=== PATIENT | female | born 1995 | race African-American/Black ===

== ENCOUNTER 2018-01-27 15:34 | Emergency (ER) | payer OTHER ==
--- NOTE | 2018-01-27 16:04 | ER Document Report ---
ED Medical Screen (RME) - General Chief Complaint: Abdominal Pain Stated Complaint: PELVIC PAIN Time Seen by Provider: 01/27/18 15:59 Notes: 22 years old female presents today with pelvic pain without any discharges. No fever chills no dysuria frequency urgency. TRAVEL OUTSIDE OF THE [place] IN LAST 30 DAYS: No - Related Data Allergies/Adverse Reactions: No Known Allergies Allergy (Unverified 01/27/18 15:36) Past Medical History - Social History Frequency of alcohol use: None Drug Abuse: None Renal/ Medical History: Denies: Hx Peritoneal Dialysis Physical Exam - Vital signs Vitals: Temp Pulse Resp BP Pulse Ox 98.5 F 98 18 128/67 H 98 01/27/18 15:42 01/27/18 15:42 01/27/18 15:42 01/27/18 15:42 01/27/18 15:42 Course - Vital Signs Vital signs: Temp Pulse Resp BP Pulse Ox 98.5 F 98 18 128/67 H 98 01/27/18 15:42 01/27/18 15:42 01/27/18 15:42 01/27/18 15:42 01/27/18 15:42
[2018-01-27 16:49] LABS: ABSOLUTE BASOPHILS # (AUTO) 0.1 10^3/uL (0.0-0.2); ABSOLUTE EOSINOPHILS # (AUTO) 0.1 10^3/uL (0.0-0.6); ABSOLUTE LYMPHOCYTES (AUTO) 2.5 10^3/uL (0.5-4.7); ABSOLUTE MONOCYTES (AUTO) 0.3 10^3/uL (0.1-1.4); ABSOLUTE NEUT (AUTO) 2.1 10^3/uL (1.7-8.2); EOSINOPHILS % (AUTO) 1.4 % (0-6); HEMATOCRIT 40.6 % (36.0-47.0); HEMOGLOBIN 13.3 g/dL (12.0-15.5); LYMPHOCYTES % (AUTO) 49.8 % (13-45); MEAN CORPUSCULAR HEMOGLOBIN 26.9 pg (27.0-33.4); MEAN CORPUSCULAR HGB CONC 32.7 g/dL (32.0-36.0); MEAN CORPUSCULAR VOLUME 82 fl (80-97); MONOCYTES % (AUTO) 5.7 % (3-13); PLATELET COUNT 215 10^3/uL (150-450); RED BLOOD COUNT 4.93 10^6/uL (3.72-5.28); RED CELL DISTRIBUTION WIDTH 15.9 % (11.5-14.0); SEGMENTED NEUTROPHILS % (AUTO) 42.1 % (42-78); TOTAL CELLS COUNTED % (AUTO) 100 %; WHITE BLOOD COUNT 5.1 10^3/uL (4.0-10.5)
[2018-01-27 17:36] LABS: APPEARANCE,URINE SLIGHTLY-CLOUDY; BILIRUBIN,URINE NEGATIVE (NEGATIVE); COLOR,URINE YELLOW; GLUCOSE, URINE NEGATIVE (NEGATIVE); KETONES,URINE NEGATIVE (NEGATIVE); LEUKOCYTE ESTERASE,URINE SMALL (NEGATIVE); NITRITE,URINE NEGATIVE (NEGATIVE); PROTEIN,URINE NEGATIVE (NEGATIVE); URINE SPECIFIC GRAVITY 1.018; UROBILINOGEN,URINE NEGATIVE mg/dL (<2.0)
[2018-01-27] MEDS ORDERED: OXYCODONE-ACETAMINOPHEN 5-325 MG TABLET PO ONE (18:29)
--- NOTE | 2018-01-27 18:30 | ER Document Report ---
HPI - HPI Patient complains to provider of: Pelvic pain Onset: Other - 3 weeks Onset/Duration: Worse Quality of pain: Achy Pain Level: 3 Context: Presents complaining of lower pelvic pain for the past 3 week patient states she did have some nausea with vomiting 1 episode yesterday. Patient denies any fever, vaginal bleeding or discharge. Patient denies any cough or cold symptoms. Associated Symptoms: Vomiting - 1 yesterday, Other - Lower pelvic pain. denies : Nonproductive cough, Fever, Sore throat Exacerbated by: Denies Relieved by: Denies Similar symptoms previously: Yes - UTI Recently seen / treated by doctor: No - ROS ROS below otherwise negative: Yes Systems Reviewed and Negative: Yes All other systems reviewed and negative - CONSTITUTIONAL Constitutional: DENIES: Fever - NEURO Neurology: DENIES: Weakness - RESPIRATORY Respiratory: DENIES: Coughing - GASTROINTESTINAL Gastrointestinal: REPORTS: Abdominal Pain, Nausea, Patient vomiting. DENIES: Diarrhea - URINARY Urinary: DENIES: Dysuria, Urgency, Frequency - REPRODUCTIVE LMP: september Reproductive: DENIES: Abnormal bleeding / discharge - DERM Skin Color: Normal Skin Problems: None Past Medical History - General Information source: Patient - Social History Smoking Status: Never Smoker Frequency of alcohol use: None Drug Abuse: None Occupation: None Lives with: Family Family History: Reviewed & Not Pertinent Patient has suicidal ideation: No Patient has homicidal ideation: No - Medical History Medical History: Negative Pulmonary Medical History: Reports: Hx Asthma - exercise induced Renal/ Medical History: Denies: Hx Peritoneal Dialysis Past Surgical History: Reports: Hx Breast Surgery - lumpectomy right Vertical Provider Document - CONSTITUTIONAL Agree With Documented VS: Yes Exam Limitations: No Limitations General Appearance: WD/WN, No Apparent Distress - INFECTION CONTROL TRAVEL OUTSIDE OF THE [place] IN LAST 30 DAYS: No - HEENT HEENT: Atraumatic, Normocephalic - NECK Neck: Normal Inspection, Supple - RESPIRATORY Respiratory: Breath Sounds Normal, No Respiratory Distress. negative: Rales, Wheezing - CARDIOVASCULAR Cardiovascular: Regular Rate, Regular Rhythm - GI/ABDOMEN Gastrointestinal: Abdomen Soft, Abdomen Tender - suprapubic, Abdominal Guarding , No Organomegaly - REPRODUCTIVE Female Genitalia: CMT. negative: Adnexal Pain-Right, Adnexal Pain-Left - BACK Back: Normal Inspection - MUSCULOSKELETAL/EXTREMETIES Musculoskeletal/Extremeties: SAURABH WRIGHT - NEURO Level of Consciousness: Awake, Alert, Appropriate Motor/Sensory: No Motor Deficit - DERM Integumentary: Warm, Dry, No Rash Course - Re-evaluation Re-evalutation: 01/27/18 21:06 Patient with suprapubic tenderness and leukocyte esterase noted on UA. Will cover for will be added. UTI at this time. Culture pelvic ultrasound reviewed , no concern for ovarian cyst, abscess or torsion. No concern for at this time. Patient nontoxic. Patient presents with abdominal pain without signs of peritonitis or other life-threatening or serious etiology. Patient appears stable for discharge and has been instructed to return immediately if the symptoms worsen in any way, or in 8-12 hours if not improved for reevaluation. The patient has been instructed to return if the symptoms worsen or change in any way. - Vital Signs Vital signs: Temp Pulse Resp BP Pulse Ox 98.5 F 98 18 128/67 H 98 01/27/18 15:42 01/27/18 15:42 01/27/18 15:42 01/27/18 15:42 01/27/18 15:42 - Laboratory Result Diagrams: 01/27/18 16:30 Laboratory results interpreted by me: 01/27/18 01/27/18 16:30 16:30 MCH 26.9 L RDW 15.9 H Lymphocytes % 49.8 H Ur Leukocyte Esterase SMALL H Urine Ascorbic Acid 40 H 01/27/18 21:06 Labs- Entire Visit 01/27/18 01/27/18 01/27/18 16:30 16:30 18:59 WBC 5.1 RBC 4.93 Hgb 13.3 Hct 40.6 MCV 82 MCH 26.9 L MCHC 32.7 RDW 15.9 H Plt Count 215 Seg Neutrophils % 42.1 Lymphocytes % 49.8 H Monocytes % 5.7 Eosinophils % 1.4 Basophils % 1.0 Absolute Neutrophils 2.1 Absolute Lymphocytes 2.5 Absolute Monocytes 0.3 Absolute Eosinophils 0.1 Absolute Basophils 0.1 Urine Color YELLOW Urine Appearance SLIGHTLY-CLOUDY Urine pH 7.0 Ur Specific Rossiter 1.018 Urine Protein NEGATIVE Urine Glucose (UA) NEGATIVE Urine Ketones NEGATIVE Urine Blood NEGATIVE Urine Nitrite NEGATIVE Urine Bilirubin NEGATIVE Urine Urobilinogen NEGATIVE Ur Leukocyte Esterase SMALL H Urine WBC (Auto) 6 Squamous Epi Cells Auto 14 Urine Mucus (Auto) RARE Urine Ascorbic Acid 40 H Urine HCG, Qual NEGATIVE Epi Cells (Wet Prep) 3+ EPITHELIALS SEEN Trichomonas (Wet Prep) NO TRICHOMONAS SEEN Vaginal WBC RARE WBCS SEEN Vaginal Yeast NO YEAST SEEN - Diagnostic Test Radiology reviewed: Reports reviewed Discharge - Discharge Clinical Impression: UTI (urinary tract infection) Qualifiers: Urinary tract infection type: site unspecified Hematuria presence: without hematuria Qualified Code(s): N39.0 - Urinary tract infection, site not specified Condition: Stable Disposition: HOME, SELF-CARE Instructions: Abdominal Pain ([facility]), Cephalexin ([facility]), Urinary Anesthetic Agent ([facility]), Urinary Tract Infection ([facility]) Additional Instructions: Return immediately for any new or worsening symptoms Followup with your primary care provider, call tomorrow to make a followup appointment Prescriptions: Cephalexin Monohydrate [Keflex 500 mg Capsule] 500 mg PO Q6H 5 Days capsule Phenazopyridine HCl [Pyridium 200 mg Tablet] 200 mg PO TID #15 tablet Referrals: [facility] [Provider Group] - Follow up as needed [facility] [Provider Group] - Follow up as needed
[2018-01-27 19:16] LABS: T.VAGINALIS (WET MOUNT) NO TRICHOMONAS SEEN; YEAST (WET MOUNT) NO YEAST SEEN
[2018-01-27 19:17] LABS: EPITHELIALS (WET MOUNT) 3+ EPITHELIALS SEEN; WBCS (WET MOUNT) RARE WBCS SEEN
--- NOTE | 2018-01-27 20:34 | RADIOLOGY REPORT (SQ) ---
EXAM DESCRIPTION: U/S NON OB PEL TV W/DOPPLER COMPLETED DATE/TIME: 01/27/2018 8:18 pm REASON FOR STUDY: pelvic pain COMPARISON: None. TECHNIQUE: Dynamic and static grayscale images acquired of the pelvis via transvaginal approach and recorded on PACS. Additional selected color Doppler and spectral images recorded. LIMITATIONS: None. FINDINGS: UTERUS: Contour normal. No mass. ENDOMETRIAL STRIPE: No focal or generalized thickening. No masses. CERVIX: No nabothian cysts. RIGHT OVARY AND DOPPLER: Normal size. No worrisome masses. Normal arterial vascular flow without evid ence for torsion. LEFT OVARY AND DOPPLER: Normal size. No worrisome masses. Normal arterial vascular flow without evide nce for torsion. FREE FLUID: Small amount of free fluid in the cul-de-sac OTHER: No other significant finding. MEASUREMENTS: UTERUS: 6.3 x 4.9 x 3.9 cm ENDOMETRIAL STRIPE: 3 mm RIGHT OVARY: 3.6 x 2.5 x 1.8 cm LEFT OVARY: 3.7 x 2.2 x 1.8 cm IMPRESSION: Age-appropriate exam. TECHNICAL DOCUMENTATION: JOB ID: [id number] [id number] 2010 [employer]- All Rights Reserved Rev-10/16 Reading location - IP/workstation name: [employer]
[2018-01-27 20:48] LABS: CHLAM PCR NOT DETECTED (NOT DETECT); GON PCR NOT DETECTED (NOT DETECT)
[2018-01-27] MEDS ORDERED: CEPHALEXIN 500 MG CAPSULE PO ONE (21:05)
[2018-01-27 21:29] VITALS: BP 122/68
== END 2018-01-27 21:31 | disposition home or self-care (01) ==
LOC: ER 15:34
DX: N39.0 Urinary tract infection, site not specified (principal); R11.2 Nausea with vomiting, unspecified; R10.2 Pelvic and perineal pain
CPT/HCPCS: 36415; 76830; 81001; 81025; 85025; 87086; 87210; 87491; 87591; 93976; 99284

== ENCOUNTER 2020-06-04 10:47 | Emergency (ER) | payer OTHER ==
--- NOTE | 2020-06-04 11:12 | ER Document Report ---
ED Medical Screen (RME) - General Chief Complaint: Nausea/Vomiting Stated Complaint: NAUSEA,VOMITING TRAVEL OUTSIDE OF THE [place] IN LAST 30 DAYS: No - HPI Notes: 06/04/20 11:09 Rapid Medical Exam HPI: Is a 24-year-old female presents to the ER complaining of nausea vomiting in the mornings X 1 week. Pt has increased BMs- nonbloody. PT says she missed her period 2 days ago but took a neg home preg test- no control. Denies fevers or chills. intermittent epigastric pain and belching. Physical Exam: GENERAL: Well-appearing, well-nourished and in no acute distress. HEAD: Atraumatic, normocephalic. ENT: Moist mucous membranes. RESP: Respirations even and unlabored CV- Regular rate. NEURO: No focal neurological deficits. Moves all extremities spontaneously and on command. My involvement in this patients care was limited to a rapid initial assessment. A comprehensive ED assessment and evaluation of the patient, analysis of test results, treatment, and completion of the medical decision making process will be performed by other ER providers. - Related Data Allergies/Adverse Reactions: banana Allergy (Verified 06/04/20 10:59) Past Medical History Pulmonary Medical History: Reports: Hx Asthma - exercise induced Renal/ Medical History: Denies: Hx Peritoneal Dialysis Past Surgical History: Reports: Hx Breast Surgery - lumpectomy right Physical Exam - Vital signs Vitals: Temp Pulse Resp BP Pulse Ox 98.5 F 82 16 119/73 98 06/04/20 10:57 06/04/20 10:57 06/04/20 10:57 06/04/20 10:57 06/04/20 10:57 Course - Vital Signs Vital signs: Temp Pulse Resp BP Pulse Ox 98.5 F 82 16 119/73 98 06/04/20 10:57 06/04/20 10:57 06/04/20 10:57 06/04/20 10:57 06/04/20 10:57
[2020-06-04 11:37] LABS: ABSOLUTE BASOPHILS # (AUTO) 0.1 10^3/uL (0.0-0.2); ABSOLUTE EOSINOPHILS # (AUTO) 0.1 10^3/uL (0.0-0.6); ABSOLUTE LYMPHOCYTES (AUTO) 2.7 10^3/uL (0.5-4.7); ABSOLUTE MONOCYTES (AUTO) 0.4 10^3/uL (0.1-1.4); ABSOLUTE NEUT (AUTO) 3.2 10^3/uL (1.7-8.2); BASOPHILS % (AUTO) 1.1 % (0-2); EOSINOPHILS % (AUTO) 1.8 % (0-6); HEMATOCRIT 40.9 % (36.0-47.0); HEMOGLOBIN 13.8 g/dL (12.0-15.5); LYMPHOCYTES % (AUTO) 41.5 % (13-45); MEAN CORPUSCULAR HEMOGLOBIN 28.1 pg (27.0-33.4); MEAN CORPUSCULAR HGB CONC 33.7 g/dL (32.0-36.0); MEAN CORPUSCULAR VOLUME 83 fl (80-97); MONOCYTES % (AUTO) 6.4 % (3-13); PLATELET COUNT 202 10^3/uL (150-450); RED CELL DISTRIBUTION WIDTH 13.8 % (11.5-14.0); SEGMENTED NEUTROPHILS % (AUTO) 49.2 % (42-78); TOTAL CELLS COUNTED % (AUTO) 100 %; WHITE BLOOD COUNT 6.5 10^3/uL (4.0-10.5)
[2020-06-04 11:41] LABS: APPEARANCE,URINE SLIGHTLY-CLOUDY; BILIRUBIN,URINE NEGATIVE (NEGATIVE); COLOR,URINE YELLOW; GLUCOSE, URINE NEGATIVE (NEGATIVE); KETONES,URINE NEGATIVE (NEGATIVE); LEUKOCYTE ESTERASE,URINE TRACE (NEGATIVE); NITRITE,URINE NEGATIVE (NEGATIVE); PROTEIN,URINE NEGATIVE (NEGATIVE); URINE SPECIFIC GRAVITY 1.024; UROBILINOGEN,URINE NEGATIVE mg/dL (<2.0)
[2020-06-04 12:00] LABS: ALBUMIN 4.7 g/dL (3.5-5.0); ALKALINE PHOSPHATASE 52 U/L (38-126); ANION GAP 11 (5-19); ASPARTATE AMINO TRANSFERASE 24 U/L (14-36); BILIRUBIN,DIRECT 0.2 mg/dL (0.0-0.4); BILIRUBIN,TOTAL 0.6 mg/dL (0.2-1.3); BLOOD UREA NITROGEN 14 mg/dL (7-20); CALCIUM 10.2 mg/dL (8.4-10.2); CARBON DIOXIDE 25 mmol/L (22-30); CHLORIDE 101 mmol/L (98-107); GLUCOSE 98 mg/dL (75-110); TOTAL PROTEIN 8.2 g/dL (6.3-8.2)
--- NOTE | 2020-06-04 15:10 | ER Document Report ---
ED General - General Chief Complaint: Nausea/Vomiting Stated Complaint: NAUSEA,VOMITING Time Seen by Provider: 06/04/20 13:34 TRAVEL OUTSIDE OF THE [place] IN LAST 30 DAYS: No - HPI Notes: Patient is a 24-year-old female presents emergency department for evaluation of nausea, vomiting, fatigue, and lower abdominal pain. She denies any diarrhea, but states that she normally has IBS with constipation, her bowel movements have been much more frequent. She has had no fever chills. No anosmia or change in her sense of taste. No cough or shortness of breath. No vaginal discharge. She states she feels like she is urinating more frequently but denies any dysuria or hematuria. No known COVID-19 exposures. She states her menstruation is 2 days late at this time. - Related Data Allergies/Adverse Reactions: banana Allergy (Verified 06/04/20 10:59) Past Medical History - General Information source: Patient - Social History Smoking Status: Never Smoker Frequency of alcohol use: Occasional Drug Abuse: None Family History: Reviewed & Not Pertinent Pulmonary Medical History: Reports: Hx Asthma - exercise induced Renal/ Medical History: Denies: Hx Peritoneal Dialysis GI Medical History: Reports: Hx Irritable Bowel - With constipation Past Surgical History: Reports: Hx Breast Surgery - lumpectomy right, Hx Gynecologic Surgery - LEEP Review of Systems - Review of Systems Constitutional: No symptoms reported EENT: No symptoms reported Cardiovascular: No symptoms reported Respiratory: No symptoms reported Gastrointestinal: See HPI Genitourinary: See HPI Female Genitourinary: See HPI Musculoskeletal: No symptoms reported Skin: No symptoms reported Neurological/Psychological: No symptoms reported Physical Exam - Vital signs Vitals: Temp Pulse Resp BP Pulse Ox 98.5 F 82 16 119/73 98 06/04/20 10:57 06/04/20 10:57 06/04/20 10:57 06/04/20 10:57 06/04/20 10:57 - Notes Notes: Vital signs reviewed, please refer to chart. Head is normocephalic, atraumatic. Pupils equal round, reactive to light. Neck is supple without meningismus. Heart is regular rate and rhythm. Lungs are clear to auscultation bilaterally. Abdomen is soft, mild suprapubic tenderness without rebound or guarding, normoactive bowel sounds throughout. No CVA tenderness noted. Exremities without cyanosis, clubbing. Posterior calves are nontender. Peripheral pulses are equal. Skin is warm and dry. Patient is awake, alert, neurological exam is nonfocal. Course - Re-evaluation Re-evalutation: 06/04/20 15:17 Patient presents emergency department for evaluation of production bow maker nausea with occasional episodes of emesis, urinary frequency, late menstruation. Her symptoms have all been ongoing for about a week. Her laboratory investigations ordered here and found to be unremarkable. Notably her test was negative. This was communicated to the patient. I advised her that ovulation times can vary, and that I could not entirely rule out the possibility of early , so I advised her to avoid alcohol. She voiced understanding. Otherwise she is to stay hydrated with small, frequent sips of fluids. If her pain worsens or she develops new or concerning symptoms of any sort, please return immediately to the emergency department for evaluation. - Vital Signs Vital signs: Temp Pulse Resp BP Pulse Ox 98.5 F 82 16 119/73 98 06/04/20 10:57 06/04/20 10:57 06/04/20 10:57 06/04/20 10:57 06/04/20 10:57 - Laboratory Results Result Diagrams: 06/04/20 11:15 06/04/20 11:15 Laboratory Results Interpreted: 06/04/20 06/04/20 11:15 11:15 Sodium 136.5 L Ur Leukocyte Esterase TRACE H Urine Ascorbic Acid 20 H Critical Laboratory Results Reviewed: No Critical Results - Radiology Results Critical Radiology Results Reviewed: No Critical Results Discharge - Discharge Clinical Impression: Lower abdominal pain Nausea & vomiting Qualifiers: Vomiting type: unspecified Vomiting Intractability: non-intractable Qualified Code(s): R11.2 - Nausea with vomiting, unspecified Condition: Stable Disposition: HOME, SELF-CARE Instructions: Abdominal Pain ([facility]), Vomiting ([facility]) Additional Instructions: Rest, stay hydrated with small, frequent sips of fluids. Follow-up with your primary care provider this week. If you develop worsening or new concerning symptoms of any sort, please return immediately to the emergency department for evaluation.
[2020-06-04 15:36] VITALS: BP 123/69
== END 2020-06-04 15:36 | disposition home or self-care (01) ==
LOC: ER 10:47
DX: R11.2 Nausea with vomiting, unspecified (principal); R10.30 Lower abdominal pain, unspecified; R53.83 Other fatigue; J45.909 Unspecified asthma, uncomplicated; R35.0 Frequency of micturition; Z91.018 Allergy to other foods
CPT/HCPCS: 36415; 80053; 81001; 81025; 83690; 85025; 99283